=== PATIENT | female | born 1990 | race Caucasian/White ===

== ENCOUNTER → 2019-12-20 11:17 | Outpatient (BNVA) | payer OTHER, SELFPAY | PROVIDERS: Family Provider Nurse Practitioner Family; PCP Nurse Practitioner Family; Visit Provider Nurse Practitioner Women's Health | DX: N92.6 Irregular menstruation, unspecified (principal); Z12.4 Encounter for screening for malignant neoplasm of cervix | CPT/HCPCS: 83001; 84146; 84443; 84450; 84702; 88175 ==

== ENCOUNTER → 2020-03-20 16:49 | Outpatient (BNVA) | payer OTHER, SELFPAY | PROVIDERS: Family Provider Nurse Practitioner Family; PCP Nurse Practitioner Family; Visit Provider Nurse Practitioner Family | DX: M25.551 Pain in right hip (principal); M25.552 Pain in left hip; M54.5 Low back pain | CPT/HCPCS: 72100; 73522 ==

== ENCOUNTER → 2020-12-03 16:50 | Outpatient (BNVA) | payer OTHER, SELFPAY | PROVIDERS: Family Provider Nurse Practitioner Family; PCP Nurse Practitioner Family; Visit Provider Nurse Practitioner | DX: I10 Essential (primary) hypertension (principal); F41.8 Other specified anxiety disorders | CPT/HCPCS: 80053; 82607; 84443; 85025 ==

== ENCOUNTER → 2021-01-30 10:51 | Outpatient (BNVA) | payer BC, SELFPAY | PROVIDERS: Family Provider Nurse Practitioner Family; PCP Nurse Practitioner Family | DX: Z20.822 Contact with and (suspected) exposure to COVID-19 (principal); J32.0 Chronic maxillary sinusitis; H66.91 Otitis media, unspecified, right ear | CPT/HCPCS: 85007; 85027; 87635 ==

== ENCOUNTER → 2021-06-17 16:38 | Outpatient (BNVA) | payer BC, SELFPAY | PROVIDERS: Family Provider Nurse Practitioner Family; PCP Nurse Practitioner Family; Visit Provider Nurse Practitioner Family | DX: F41.8 Other specified anxiety disorders (principal); J02.9 Acute pharyngitis, unspecified; B37.0 Candidal stomatitis | CPT/HCPCS: 87071; 87880 ==

== ENCOUNTER → 2022-10-01 11:20 | Outpatient (BNVA) | payer OTHER, SELFPAY | PROVIDERS: Family Provider Nurse Practitioner Family; PCP Nurse Practitioner Family; Referring Provider Emergency Medicine; Visit Provider Student in an Organized Health Care Education/Training Program | DX: S66.821A Laceration of other specified muscles, fascia and tendons at wrist and hand level, right hand, initial encounter (principal); W26.0XXA Contact with knife, initial encounter | CPT/HCPCS: 73130 ==

== ENCOUNTER 2022-10-02 11:12 | Day surgery (SDC) | payer OTHER, SELFPAY ==
[2022-10-02 08:10] VITALS: BMI 28.7
[2022-10-02 11:39] LABS: OR HCG Qualitative Urine Negative (Negative)
[2022-10-02 11:40] VITALS: BP 154/112; PULSE 63; RESP 16; TEMP 36.3; O2SAT 99
--- NOTE | 2022-10-02 11:47 | P.ANESASSM_ITS ---
Pre-Anesthetic Assessment Height/Weight: Height 1.57 m Weight 71.214 kg Preop Diagnosis: Right small finger flexor tendon laceration Operation Date: 10/02/22 13:00 Proposed Procedures p Right small finger irrigation and debridement, wound exploration and flexor tendon repair. 55426,S66.821A; S61.401A,S69.90XA(Right) - Jeb [place], DO s Wound Exploration(Right) - Jeb [place], DO s Tendon Repair Finger Flexor Tendon Repair Finger(Right) - Jeb [place], DO Familial anesthetic complications: None Was Beta Marely taken within 24 hours: Yes Airway Submandibular: within normal limits Cervical ROM: within normal limits Mallampati: Class I CV/HEM Hypertension GI Gastroesophageal Reflux Disease Metabolic Hyperlipidemia Neuropsych Depression Anesthetic Plan ASA status: 2 Anesthesia: MAC Medications/Allergies Home Medications Medication Instructions Recorded Confirmed Last Taken Type tizanidine 4 mg tablet 4 mg PO DAILY PRN muscle 10/24/21 10/02/22 10/01/22 21:00 Rx spasticity #90 tabs cephalexin 500 mg capsule 500 mg PO Q8H 7 days #21 caps 09/30/22 10/02/22 Unknown Rx clonidine HCl 0.1 mg tablet 0.1 mg PO PRN PRN Blood Pressure 09/30/22 10/02/22 3 Days Ago History ~09/29/22 losartan 100 mg tablet 100 mg PO DAILY 09/30/22 10/02/22 10/01/22 08:00 History metoprolol tartrate 25 mg tablet 25 mg PO BID 09/30/22 10/02/22 10/02/22 History omeprazole 20 mg capsule,delayed 20 mg PO DAILY 09/30/22 10/02/22 10/02/22 History release rosuvastatin 20 mg tablet 20 mg PO DAILY 09/30/22 10/02/22 10/01/22 21:00 His tory venlafaxine 150 mg 150 mg PO DAILY 09/30/22 10/02/22 10/01/22 08:00 History capsule,extended release 24 hr zolpidem 10 mg tablet 5 mg PO ONCE 09/30/22 10/02/22 10/01/22 21:00 History Allergies Allergy/AdvReac Type Severity Reaction Status Date / Time No Known Allergies Allergy Verified 10/02/22 11:36 [facility] Anesthesia Medical History Anxiety with depression Essential (primary) hypertension Insomnia No pertinent past medical history neghx:dm,thyroid,dvt/pe Surgical History No pertinent past surgical history Family History Mother Diabetes Hypertension Family/Other Diabetes Paternal uncle x2 Father Hypertension Stroke Grandmother Hypertension Grandfather Hypertension Denies family history of Colon cancer Ovarian cancer Heart disease Hyperlipidemia Breast cancer Family history of thyroid problem Uterine cancer Social History Smoking and tobacco status: light tobacco smoker (every couple months) Second hand smoke exposure: No Smoking risk assessment/counseling performed?: No Alcohol intake: never Desire information about alcohol rehabilitation?: No Counseling given: No Substance/Drug Use: never Desire information about substance/drug rehabilitation?: No Counseling given: No Adopted: No Caregiver/support person: No Lives independently: Yes Household members: spouse and children Housing: House Marital status: Number of children: 1 service: No Current occupational status: employed Do you think of yourself as: Straight/Heterosexual Current gender identity: Female Additional social history: - Tobacco use: smokes 1cig every 6 months to a year Alcohol use: Denies Drug use: Denies Data Anesthesia Cardiac Studies: No Data to Display
[2022-10-02] MEDS: sodium chloride 0.9% 1,000 ML 30 ML IV (11:51)
[2022-10-02] MEDS: acetaminophen 1,000 MG/100 ML PIGGYBACK 400 MG IV (11:52)
[2022-10-02] MEDS: ketorolac 30 mg/mL INJ IVP (11:52)
[2022-10-02] MEDS: labetalol 5 mg/mL SDV 20mL IVP (12:12)
--- NOTE | 2022-10-02 12:28 | W.PM.OPSUD ---
Surgery/Procedure H&P Update DATE OF PROCEDURE: October 02, 2022 DATE H&P PERFORMED: 10/01/22 CHANGES TO PREVIOUS DOCUMENTATION: No changes from office visit from yesterday in the HPI. Patient is continued with her ER antibiotics splint on in place plan to proceed with surgery for right small finger irrigation debridement wound exploration and flexor tendon repair all questions answered. PREOP DIAGNOSIS: Right small finger flexor tendon laceration PRIMARY INDICATION FOR PROCEDURE: Right small finger flexor tendon laceration PLANNED PROCEDURE: Operation Date: 10/02/22 13:00 Proposed Procedures p Right small finger irrigation and debridement, wound exploration and flexor tendon repair. 74365,S66.821A; S61.401A,S69.90XA(Right) - Jeb [place], DO s Wound Exploration(Right) - Jeb Chavez, DO s Tendon Repair Finger Flexor Tendon Repair Finger(Right) - Jeb [place], DO
[2022-10-02] MEDS: ceFAZolin 2,000 MG in sodium chloride 0.9% (plus) 50 ML 100 MG IV (12:53)
--- NOTE | 2022-10-02 14:06 | SUR.OPER ---
1408 UPDATED PATIENTS MOTHER VIA WAITING AREA
[2022-10-02] MEDS: lidocaine 1% INJ 10 mL (per mL) XX ×2 (15:00)
[2022-10-02 15:20] VITALS: BP 133/78; PULSE 79; RESP 16; O2SAT 94
[2022-10-02 15:25] VITALS: BP 137/83; PULSE 77; RESP 16; O2SAT 95
[2022-10-02 15:30] VITALS: BP 145/85; PULSE 72; RESP 16; TEMP 36.2; O2SAT 94
[2022-10-02 15:35] VITALS: BP 147/76; PULSE 78; RESP 16; TEMP 36.1; O2SAT 95
[2022-10-02 15:50] VITALS: BP 155/87; PULSE 63; RESP 16; O2SAT 96
--- NOTE | 2022-10-02 16:30 | PM.PACU ---
PACU note Narrative: Patient seen and examined postoperatively patient is recovering well pain controlled. Patient has decreased sensation secondary to local anesthesia/digital block. Bulky dressing on in place limits examination fingertip is warm well-perfused brisk capillary for less than 2 seconds dorsal blocking splint on in place Exam: awake Disposition: discharged
--- NOTE | 2022-10-02 16:34 | ANE.PACU2 ---
Inpatient post-anesthesia follow up: Vital signs: Temperature 97 F Pulse Rate 63 Respiratory Rate 16 Blood Pressure 155/87 Pulse Oximetry 96 Oxygen Delivery Me thod Room Air Oxygen Flow Rate Fraction of Inspir ed Oxygen Hydration adequate: Yes Nausea and vomiting: No Pain level: 3
--- NOTE | 2022-10-02 16:35 | PM.OP ---
Operative Report Date of procedure: October 02, 2022 Pre-op diagnosis: Preop Diagnosis Right small finger flexor tendon laceration Post-op diagnosis: Right small finger zone 2 flexor tendon injury of FDS and FDP tendons Procedure done: Right small finger irrigation and debridement Right small finger flexor digitorum profundus tendon repair Right small finger radial slip flexor digitorum superficialis tendon repair Right small finger ulnar slip flexor digitorum superficialis tendon excision Implants: 4?0 Arthrex FiberWire and 6-0 Prolene Surgeon: Jeb Chavez DO Anesthesia: MAC (Local) Estimated blood loss: 10 cc 69 minutes IV fluids: 1100 mL Complications: None Findings: See operative report narrative Condition: stable Disposition: same day Brief History: Patient is a pleasant 32-year-old female presented to my office after sustaining a laceration to the right small finger directly over zone 2 just distal to the MP volar flexion crease. She was initially seen evaluated in the urgent care she was cleaned out a bedside incision was then closed there is concern for possible flexor tendon injury due to lack of flexion she was given antibiotics cleaned out and followed up with my office the following day. On my examination she has findings consistent with FDS and FDP tendons. At this point time given her young age as well as lack of flexion and decreased function recommend surgical intervention of the right small finger irrigation debridement and flexor tendon repair. Patient understands the risk benefits complication alternatives with surgery and elects proceed with surgical intervention all questions answered. Procedure: Patient was seen evaluate in the preoperative holding area. Consent was reviewed and signed with patient. Correct extremity was then marked. Patient was then seen and evaluated by the anesthesia apartment once cleared for surgery taken back to the operative suite plan was for a MAC and local anesthetic in order to allow patient to wake up and stressed the repair for examination of any quad region to affect. Patient was taken back to the operative suite and transferred onto the OR table all bony prominences well-padded patient appropriate secured to bed. Patient in supine position armboard applied to the right upper extremity. Nonsterile tourniquet applied to right upper arm. Patient underwent anesthesia previously department once properly anesthetized the right upper extremity is then prepped and draped in standard orthopedic fashion. Final timeout performed. Patient received appropriate preoperative antibiotics. Local anesthesia was then injected under sterile aseptic technique to perform an appropriate digital block for pain control and anesthesia throughout the procedure. I then utilized Esmarch tourniquet to exsanguinate the right upper extremity and the tourniquet was insufflated 250 mmHg. This point in time I then removed the simple stitches placed by the urgent care and evaluated patient small stab incision in zone 2 I utilized this incision incorporated and extended my incision both proximally and distal respecting my flexor creases and approaching these obliquely extending this in standard Bobbi fashion. I created full-thickness skin flaps and the skin flaps were then sutured and held back. I then came down directly over the flexor tendon sheath and it was evident that it just distal to the A2 patricia patient had lacerated the FDS and FDP tendons both the proximal and distal stumps were in close proximity. At this point in time I carried my dissection to both the radial and ulnar digital neurovascular bundles these were both intact with no injury. At this point in time I then performed a thorough irrigation and debridement of the entire wound of the small finger this extended to being roughly 4 cm x 1 cm x 0.5 cm. This was simply debrided of skin subcutaneous tissue. No bone or tendon was debrided. At this point time I then identified the distal stump and proximal stumps. Given this is just distal to the A2 and zone 2 injury my plan was to start with repair of FDP tendon and evaluate for either leaving for profundus finger versus possible a repair of FDS if possible in order to make sure there was no bulkiness in repair or triggering of the repair. At this point in time I completed my dissection and left the a 2 patricia intact as well as a 4 I did have to open up the A3 patricia in order to accommodate for the repair. At this point time I then pinned the distal stump up to appropriate tension abutting the distal stump of the FDP tendon. The FDP tendon was then was then repaired in a standard 6 core strand fashion with 4-0 FiberWire. This had appropriate tendon opposition for healing. I then utilized 6-0 Prolene suture as an epitendinous stitch. I then took the finger through range of motion there is no repair gap site noted. At this point in time I then evaluated the FDS tendons and in making a flexion of the finger the FDP tendon appeared to have appropriate space within the A2 patricia sheath with no triggering as a result I then elected to repair the radial side of the FDS. I then in standard fashion used a needle to hold the FDS tendon in appropriate position of the proximal and distal stump and in the standard fashion I performed a core strand repair of the FDS tendon given the location of this the FDS tendon was extremely small and I was only able to perform a 2 core strand repair of this as well as then an epitendinous stitch with the 4-0 FiberWire and 6-0 Prolene. I was satisfied with my repair and taken through finger range of motion and there was no triggering noted. At this point in time I elected in order to debulk the A2 patricia I subsequently performed an excision of the ulnar side of the FDS slip in order to debulk the tunnel. I shuttled PDS suture in order to isolate the appropriate FDS tendon that was the ulnar slip and pulled this through the proximal portion and then subsequently resected the ulnar slip of the FDS to its entirety to help allow for smooth flexor tendon range of motion through the A2 and A4 pulleys. At this point in time I was satisfied with my repair and wanted to evaluate with the patient. She subsequently was awakened from anesthesia and given she was under local anesthetic was able to make a fist and extend there is no tendon repair gapping and there was no appreciable triggering she was able to make a fist I did keep her protected from full extension there was no evidence of quad region effect. At this point time satisfied with my repair. Tourniquet was deflated. Wound bed was thoroughly irrigated. Hemostasis was satisfactory with bipolar electrocautery. I then subsequently closed the incision with interrupted 4-0 nylon suture. Dressings were then placed of Xeroform 4 x 4's Curlex soft roll and a dorsal blocking splint. Patient was then awakened from anesthesia and taken to PACU in stable condition. Disposition: Patient taken to PACU in stable condition recovering well. Will receive appropriate discharge instruction as well as pain medication postoperatively. In dorsal blocking splint until follow-up. We will get her established with flexor tendon repair protocol with our OT hand therapy department. Patient will follow-up in our office in 2 weeks. Patient understands that if she has any questions or concerns and contact the office. She should continue and complete her antibiotics from the urgent care postoperatively. All questions answered.
--- NOTE | 2022-10-06 23:55 | PM.OP2 ---
Brief Operative Note Date of procedure: 10/02/22 Pre-op diagnosis: Right small finger zone 2 flexor tendon injury Post-op diagnosis: same (FDS and FDP tendons lacerated) Procedure Done: Right small finger irrigation and debridement Right small finger flexor digitorum profundus tendon repair Right small finger radial slip flexor digitorum superficialis tendon repair Surgeon: Jeb Chavez Estimated blood loss (mL): 10 Complications: none Post-op Plan: Patient taken to PACU in stable condition recovering well dorsal blocking splint on in place. Patient be nonweightbearing to the right hand will receive appropriate discharge instructions as well as pain medication postoperatively. Patient to follow-up in the orthopedic office in 2 weeks. Patient will follow zone 2 flexor tendon repair protocol with OT hand therapy. Patient understands agrees with current plan. Questions answered. Condition: stable Disposition: same day Coding Level of Care Code Acute Code for Gabe Denise
== END 2022-10-02 16:15 | disposition home or self-care (01) ==
PROVIDERS: Anesthesiology; Visit Provider Student in an Organized Health Care Education/Training Program
PROC: (CPT 26356; principal; 2022-10-02 13:00)
PROC: (CPT 26356; 2022-10-02 13:00)
PROC: (CPT 26356; 2022-10-02 13:00)
DX: S66.126A Laceration of flexor muscle, fascia and tendon of right little finger at wrist and hand level, initial encounter (principal); I10 Essential (primary) hypertension; K21.9 Gastro-esophageal reflux disease without esophagitis; E78.5 Hyperlipidemia, unspecified; F17.210 Nicotine dependence, cigarettes, uncomplicated; W26.0XXA Contact with knife, initial encounter
CPT/HCPCS: 26356; 84703; J0131; J0690; J1100; J1885; J2250; J2405; J2704; J2795; J3010; J3490; J7030

== ENCOUNTER 2022-11-25 07:30 | Outpatient (RCR) | payer OTHER, SELFPAY | END 2022-12-17 23:59 | disposition home or self-care (01) | LOC: SOT 07:30 | PROVIDERS: Visit Provider Student in an Organized Health Care Education/Training Program | DX: Z47.89 Encounter for other orthopedic aftercare (principal) | CPT/HCPCS: 97022; 97035; 97110; 97140; 97166; 97530 ==

== ENCOUNTER 2022-12-18 06:00 | Outpatient (RCR) | payer OTHER, SELFPAY | END 2023-01-16 23:59 | disposition home or self-care (01) | LOC: SOT 06:00 | PROVIDERS: Visit Provider Student in an Organized Health Care Education/Training Program | DX: Z47.89 Encounter for other orthopedic aftercare (principal) | CPT/HCPCS: 97022; 97035; 97110; 97140 ==

== ENCOUNTER 2023-01-17 06:00 | Outpatient (RCR) | payer OTHER, SELFPAY | END 2023-02-16 23:59 | disposition home or self-care (01) | LOC: SOT 06:00 | PROVIDERS: Visit Provider Student in an Organized Health Care Education/Training Program | DX: Z47.89 Encounter for other orthopedic aftercare (principal) | CPT/HCPCS: 97022; 97035; 97110; 97140 ==

== ENCOUNTER 2023-02-17 06:00 | Outpatient (RCR) | payer OTHER, SELFPAY | END 2023-03-18 23:59 | disposition home or self-care (01) | LOC: SOT 06:00 | PROVIDERS: Visit Provider Student in an Organized Health Care Education/Training Program | DX: Z47.89 Encounter for other orthopedic aftercare (principal) | CPT/HCPCS: 97022; 97035; 97110; 97140 ==

== ENCOUNTER → 2024-02-07 13:22 | Outpatient (BNVA) | payer MEDICAID, SELFPAY | PROVIDERS: Visit Provider Clinical Nurse Specialist Adult Health | DX: I10 Essential (primary) hypertension (principal); E78.5 Hyperlipidemia, unspecified | CPT/HCPCS: 80053; 80061; 85025 ==

== ENCOUNTER 2024-05-20 15:23 | Emergency (ER) | payer MEDICAID, SELFPAY ==
[2024-05-20 16:02] VITALS: BP 102/67; PULSE 82; RESP 16; TEMP 36.8; O2SAT 99; BMI 29.2
[2024-05-20 16:52] LABS: HCG Qualitative Urine. Positive (Negative)
[2024-05-20 16:53] LABS: Bilirubin Urine Negative (Negative); Blood Urine Negative (Negative); Glucose Urine UA Negative (Normal); Ketones Urine Trace (Negative); Leukocyte Esterase Urine Trace (Negative); Nitrate Urine Negative (Negative); Protein Urine Trace (Negative); Specific Gravity, Urine 1.028 (1.005-1.030); Urine Appearance Cloudy (CLEAR); Urine Color Yellow (Yellow); pH Urine 5.5 (5-7)
[2024-05-20 16:56] LABS: Add Urine Microscopic? YES; Bacteria Urine 1+ /hpf; Hyaline Casts Urine 2.87 /lpf; Squamous Epithelial Cell Urine 21-50 /hpf (0-5)
--- NOTE | 2024-05-20 17:42 | USR_ITS ---
PROCEDURE INFORMATION: Exam: US First Trimester, Transabdominal and US , Transvaginal Exam date and time: 05/20/2024 6:50 PM Age: 33 years old Clinical indication: complicated by abdominal or pelvic pain; Lower; First trimester (<14 weeks 0 days); Gestational age or lmp: 8w3d; ; Additional info: Abd cramping LABS AND CLINICAL REPORTS: Last menstrual period start date: 03/11/2024 Gestational age (Established): 10 w 0 d Estimated due date (Established): 12/16/2024 TECHNIQUE: Imaging protocol: Real-time transabdominal obstetrical ultrasound of the maternal pelvis and a first trimester , less than 14 weeks 0 days, with image documentation. Transvaginal imaging was used for better evaluation of the fetus, adnexa, and/or cervix. COMPARISON: CT abdomen pelvis w con* [id number] 10/24/2017 10:22 PM FINDINGS: GESTATION: Gestation: There is a single intrauterine with crown-rump length measuring 19 mm. Yolk sac is rounded in morphology, measuring 3.5 mm. Embryo/ cardiac activity (BPM): 165 bpm Extra-embryonic membranes/Placenta: Small subchorionic hemorrhages measuring up to 1.6 cm. Amniotic/Chorionic fluid: Amniotic and extra-amniotic fluid are normal for gestational age. BIOMETRY: Gestational age (AUA): 8 weeks 3 days MATERNAL: Cervix: Cervical length measures 4.8 cm. Right ovary/adnexa: Right ovary measures 2.2 x 1.8 x 1.4 cm. Flow is visualized. No evidence of adnexal mass. Left ovary/adnexa: Left ovary measures 2.6 x 1.7 x 1.7 cm. Flow is visualized. No evidence of adnexal mass. Left-sided corpus luteum cyst noted. Intraperitoneal space: No significant pelvic free fluid. US/US OB <=14 wk fetus w transvag IMPRESSION: 1. Intrauterine with an estimated gestational age 8 weeks 3 days, corresponding to an estimated delivery December 27, 2024.
--- NOTE | 2024-05-20 17:46 | W.ED.ABDPA2 ---
HPI - Abdominal Pain General: Chief Complaint: Abdominal Pain Stated Complaint: abdominal pain Time Seen by Provider: 05/20/24 17:26 History of Present Illness: Isamar Bingham is a 33-year-old female that presents to the emergency department with complaints of abdominal cramping intermittently. Described as epigastric, but has diffuse cramping and diarrhea. Patient reports her son has been ill as well. Patient reports symptoms began 3 weeks ago This last she took a test that was positive. Last normal period was March 11, 2024. Patient also concerned about medications. She takes numerous medications that she is concerned about taking while . Patient is a G2, During her last she was preeclamptic. Patient denies fever, chills, vaginal bleeding, nausea or vomiting Associated Symptoms: Reports GI cramping and diarrhea Related Data Previous Rx's Medication Instructions Recorded metoprolol tartrate 25 mg tablet 25 mg PO BID #180 tabs 02/07/24 venlafaxine 150 mg 150 mg PO DAILY #90 caps 02/07/24 capsule,extended release 24 hr nifedipine 10 mg capsule 10 mg PO BID #30 caps 05/20/24 Allergies Allergy/AdvReac Type Severity Reaction Status Date / Time No Known Allergies Allergy Verified 02/07/24 12:54 Review of Systems General: Reports: 10 or more systems reviewed and unremarkable except in HPI and below GI: Reports: abdominal pain, diarrhea and GI cramping [facility] PFSH: Medical History (Updated 05/20/24 @ 19:40 by DALIA Lowery) Muscle cramps Hyperlipidemia GERD (gastroesophageal reflux disease) Flexor tendon laceration of right hand with open wound Insomnia No pertinent past medical history neghx:dm,thyroid,dvt/pe Essential (primary) hypertension Anxiety with depression Surgical History Hx of hand surgery tendon repair of right hand Family History Mother Diabetes Hypertension Family/Other Diabetes Paternal uncle x2 Father Hypertension Stroke Grandmother Hypertension Grandfather Hypertension Denies family history of Colon cancer Ovarian cancer Heart disease Hyperlipidemia Breast cancer Family history of thyroid problem Uterine cancer Social History Smoking and tobacco/nicotine status: former use of tobacco/nicotine Quit status (tobacco/nicotine): has quit using Former quit date comment: 2-3 years ago Second hand smoke exposure: No Alcohol intake: never Substance/Drug Use: never Adopted: No Caregiver/support person: No Lives independently: Yes Household members: children Housing: House Marital status: Number of children: 1 Highest education level completed: Some College, No Degree service: No Current occupational status: previously employed Do you think of yourself as: Straight/Heterosexual Current gender identity: Female Physical Exam Const: COMMON NORMALS: no acute distress, patient oriented x3 and alert GENERAL APPEARANCE: cooperative ORIENTATION/CONSCIOUSNESS: Yes awake, Yes oriented to person, Yes oriented to place and Yes oriented to time Resp: COMMON NORMALS: normal respiratory effort, No retractions and No use of accessory muscles EFFORT & INSPECTION: Yes able to speak in complete sentences and Yes symmetric chest movement GI: COMMON NORMALS: Normal to inspection, nondistended, normoactive bowel sounds present, Soft to palpation and non-tender INSPECTION: Yes normal to inspection PALPATION: Yes Soft to palpation RECTAL EXAM: deferred Neuro: COMMON NORMALS: patient oriented x3 SENSORIUM/ORIENTATION: Yes alert, Yes oriented to person, Yes oriented to place and Yes oriented to time CRANIAL NERVES: Yes CN normal except as noted Psych: COMMON NORMALS: mental status grossly normal, Normal thought process present, cooperative, activity/motor behavior normal, denies homicidal ideation and denies suicidal ideation THOUGHT PROCESS: Normal thought process present Course Vital Signs: Vital signs: Vital Signs Temperature 98.3 F 05/20/24 16:02 Pulse Rate 92 05/20/24 19:16 Respiratory Rate 16 05/20/24 16:02 Blood Pressure 112/75 05/20/24 19:16 Pulse Oximetry 100 05/20/24 19:16 Oxygen Delivery Me thod Room Air 05/20/24 19:16 MDM - Abdominal Pain Medical Decision Making Patient presents to the emergency department with complaints of possible , 3 weeks of abdominal cramping with diarrhea, and numerous medication she is concerned about continuing if she is . She had a positive hCG qualitative here. A quantitative study was ordered. I also obtained an Rh, CBC, CMP, lipase, urinalysis. We also obtained a ultrasound OB. Due to no family members I did also obtain a COVID/influenza/RSV test. CBC reveals no leukocytosis or anemias. Chemistry panel reveals mild hyponatremia but no significant dehydration or electrolyte abnormality. Her kidney function is within normal limits. Lipase is within normal limits. Her urinalysis reveals no urinary tract infection. We did obtain a quantitative hCG which is 109,000. She is flu a positive An ultrasound was completed. She is 8 weeks 3 days . She has 2 subchorionic hemorrhages. There is no fluid in the cul-de-sac. In reviewing her medication list, patient's entire medication list is category C, D, and X. I reviewed her medications and her case with Dr. Ahn and Dr. Acosta. They agree with plan for making medication adjustments and having her follow-up outpatient with high school history teacher and her primary care. I discontinued her medications with the exceptions of metoprolol and venlafaxine. I am adding nicardipine 10 mg I have consulted the rifle case repairer to assist with high risk OB referral. Patient was updated and all questions were answered Lab Data 05/20/24 18:26 05/20/24 18:26 Labs/Radiology: Laboratory Results WBC 5.49 10^3/uL (3.29-11.43) 05/20/24 18:26 RBC 4.37 10^6/uL (3.85-5.65) 05/20/24 18:26 Hgb 13.50 g/dL (11.27-16.99) 05/20/24 18:26 Hct 41.4 % (36-47) 05/20/24 18:26 MCV 94.7 fl (85-98) 05/20/24 18:26 MCH 30.9 pg (27-33) 05/20/24 18:26 MCHC 32.6 g/dL (30-55) 05/20/24 18:26 RDW 13.0 % (12.1-15.1) 05/20/24 18:26 Plt Count 214 10^3/cmm (157-399) 05/20/24 18:26 MPV 10.0 fL (7.4-10.4) 05/20/24 18:26 Neut % (Auto) 74.5 % 05/20/24 18:26 Lymph % (Auto) 12.8 % 05/20/24 18:26 Payne % (Auto) 11.7 % 05/20/24 18:26 Eos % (Auto) 0.2 % 05/20/24 18:26 Baso % (Auto) 0.4 % 05/20/24 18:26 Neut # (Auto) 4.10 10^3/uL (1.8-7.7) 05/20/24 18:26 Lymph # (Auto) 0.7 10^3/uL (0.8-4.8) L 05/20/24 18:26 Payne # (Auto) 0.6 10^3/uL (0.2-0.9) 05/20/24 18:26 Eos # (Auto) 0.0 10^3/uL (0.0-0.8) 05/20/24 18:26 Baso # (Auto) 0.0 10^3/uL (0.0-0.1) 05/20/24 18:26 Nucleated RBC % (auto) 0 % 05/20/24 18: Nucleated RBCs # 0.0 /100WBC 05/20/24 18:26 Sodium 131 mmol/L (136-145) L 05/20/24 18:26 Potassium 4.0 mmol/L (3.5-5.1) 05/20/24 18: Chloride 97 mmol/L (98-107) L 05/20/24 18:26 Carbon Dioxide 20 mmol/L (22-29) L 05/20/24 18:26 Anion Gap 18.0 (5-19) 05/20/24 18:26 BUN 10 mg/dL (6-20) 05/20/24 18:26 Creatinine 0.5 mg/dL (0.5-0.9) 05/20/24 18:26 GFR Calculation 143.0 mL/min (90-130) H 05/20/24 18:26 Glucose 77 mg/dL (65-115) 05/20/24 18: Calculated Osmolality 270 mOsm/kg (285-295) L 05/20/24 18:26 Calcium 9.9 mg/dL (8.5-10.5) 05/20/24 18:26 Total Bilirubin 0.2 mg/dL (0.15-1.2) 05/20/24 18: AST 17 U/L (0-32) 05/20/24 18:26 ALT 15 U/L (0-33) 05/20/24 18:26 Alkaline Phosphatase 54 U/L (35-105) 05/20/24 18:26 Total Protein 7.4 g/dL (6.6-8.7) 05/20/24 18:26 Albumin 4.3 g/dL (3.5-5.2) 05/20/24 18:26 Globulin 3.1 g/dL (1.3-4.6) 05/20/24 18:26 Lipase 26 U/L (13-60) 05/20/24 18:26 HCG, Qual Positive (Negative) H 05/20/24 16:47 Ser , Semi-Qnt 466914.00 mIU/mL 05/20/24 18:26 Urine Color Yellow (Yellow) 05/20/24 16:47 Urine Appearance Cloudy (CLEAR) A 05/20/24 16:47 Urine pH 5.5 (5-7) 05/20/24 16:47 Ur Specific [place] 1.028 (1.005-1.030) 05/20/24 16:47 Urine Protein Trace (Negative) A 05/20/24 16:47 Urine Glucose (UA) Negative (Normal) 05/20/24 16:47 Urine Ketones Trace (Negative) 05/20/24 16:47 Urine Blood Negative (Negative) 05/20/24 16:47 Urine Nitrate Negative (Negative) 05/20/24 16:47 Urine Bilirubin Negative (Negative) 05/20/24 16:47 Urine Urobilinogen 1.0 mg/dL (Negative) 05/20/24 16:47 Ur Leukocyte Esterase Trace (Negative) A 05/20/24 16:47 Urine RBC 6-10 /hpf (0-2) 05/20/24 16:47 Urine WBC 6-10 /hpf (0-5) 05/20/24 16:47 Ur Squamous Epith Cells 21-50 /hpf (0-5) H 05/20/24 16:47 Amorphous Sediment Not Reportable 05/20/24 16:47 Urine Bacteria 1+ /hpf (NONE) H 05/20/24 16:47 Hyaline Casts 2.87 /lpf 05/20/24 16:47 Coronavirus (PCR) Negative (Negative) 05/20/24 17:52 Influenza A (PCR) Positive (Negative) 05/20/24 17:52 Influenza Type B (PCR) Negative (Negative) 05/20/24 17:52 RSV (PCR) Negative (Negative) 05/20/24 17:52 Rho(D) Type Rh positive 05/20/24 18:26 XR interpretation done by ED provider, pending radiology final review Discharge Plan Discharge Patient Disposition: Home Clinical Impression: , Essential (primary) hypertension, Subchorionic hemorrhage, Influenza A Condition: Stable Prescriptions: New nifedipine 10 mg capsule 10 mg PO BID Qty: 30 0RF Discontinued losartan 100 mg tablet No Action metoprolol tartrate 25 mg tablet 25 mg PO BID Qty: 180 3RF venlafaxine 150 mg capsule,extended release 24hr 150 mg PO DAILY Qty: 90 3RF Discharge Orders: Discharge ED (Routine); Ordered 05/20/24 Ordered By: Godwin Grubbs Discharge Diet: Advance as tolerated Discharge Activity: Resume usual activity Patient Instructions: Influenza (ED), Abdominal Pain in (ED), Subchorionic Hemorrhage (ED), Pain Management Activity Restrictions/Additional Instructions: I have consulted the rifle case repairer to assist in high school history teacher referral. I have also reconciled her medications and discontinued everything except for venlafaxine, metoprolol. Have added nifedipine. I given you enough nifedipine for 2 weeks. I want you to call your primary care doctor Wednesday to make an appointment. You need to follow-up this week with primary care. Please return to the emergency department for new concerning or worsening symptoms Do not return to work until you are fever free without ibuprofen or Tylenol for 24 hours. You should rest for the next couple days due to the subchorionic hemorrhage. A work note has been provided Stand Alone Forms: Work/School Release Coding Level of Care Code ED Cash Controller for Gabe Denise
[2024-05-20 18:37] LABS: Covid PCR NEGATIVE (Negative); Influenza A POSITIVE (Negative); Influenza B NEGATIVE (Negative); Respiratory Syncytial Virus Ce NEGATIVE (Negative)
[2024-05-20 18:41] LABS: Basophils % 0.4 %; Eosinophils % 0.2 %; Hematocrit 41.4 % (36-47); Lymphocytes # 0.7 10^3/uL (0.8-4.8); Lymphocytes % 12.8 %; Mean Corpuscular HGB Conc 32.6 g/dL (30-55); Mean Corpuscular Hemoglobin 30.9 pg (27-33); Mean Corpuscular Volume 94.7 fl (85-98); Monocytes # 0.6 10^3/uL (0.2-0.9); Monocytes % 11.7 %; Neutrophils % 74.5 %; Nucleated Red Blood Cells % 0 %; Platelet Count 214 10^3/cmm (157-399); Red Blood Count 4.37 10^6/uL (3.85-5.65); White Blood Count 5.49 10^3/uL (3.29-11.43)
[2024-05-20 19:05] LABS: Alanine Aminotransferase 15 U/L (0-33); Albumin Level 4.3 g/dL (3.5-5.2); Alkaline Phosphatase 54 U/L (35-105); Blood Urea Nitrogen 10 mg/dL (6-20); Calcium 9.9 mg/dL (8.5-10.5); Carbon Dioxide 20 mmol/L (22-29); Chloride 97 mmol/L (98-107); Creatinine Clr Calc Pharmacy 150.6795; Globulin 3.1 g/dL (1.3-4.6); Glucose 77 mg/dL (65-115); Lipase 26 U/L (13-60); Osmolality Calculated 270 mOsm/kg (285-295); Sodium 131 mmol/L (136-145); Total Bilirubin 0.2 mg/dL (0.15-1.2); Total Protein 7.4 g/dL (6.6-8.7)
[2024-05-20 19:06] LABS: Aspartate Amino Transferase 17 U/L (0-32)
[2024-05-20 19:16] VITALS: BP 112/75; PULSE 92; O2SAT 100
[2024-05-20 19:53] VITALS: BP 112/75; PULSE 92; O2SAT 100
--- NOTE | 2024-05-24 08:18 | DCPLANNER ---
Message sent to [facility] -
== END 2024-05-20 19:54 | disposition home or self-care (01) ==
PROVIDERS: Emergency Provider Nurse Practitioner
DX: O20.8 Other hemorrhage in early pregnancy (principal); Z3A.01 Less than 8 weeks gestation of pregnancy; Z11.52 Encounter for screening for COVID-19; I10 Essential (primary) hypertension; J10.1 Influenza due to other identified influenza virus with other respiratory manifestations; Z87.891 Personal history of nicotine dependence; E78.5 Hyperlipidemia, unspecified
CPT/HCPCS: 36415; 76801; 76817; 80053; 81001; 81025; 83690; 84702; 85025; 87637; 99284

== ENCOUNTER → 2024-09-20 11:29 | Outpatient (BNVA) | payer MEDICAID, SELFPAY | PROVIDERS: Visit Provider Nurse Practitioner Women's Health | DX: Z12.4 Encounter for screening for malignant neoplasm of cervix (principal); R19.7 Diarrhea, unspecified | CPT/HCPCS: 76830; 87045; 87427; 87449; 87624 ==

== ENCOUNTER → 2024-10-12 14:09 | Outpatient (BNVA) | payer MEDICAID, SELFPAY | PROVIDERS: Visit Provider Obstetrics & Gynecology | DX: Z87.42 Personal history of other diseases of the female genital tract (principal) | CPT/HCPCS: 81025; 88305 ==

== ENCOUNTER → 2024-12-28 10:02 | Outpatient (BNVA) | payer MEDICAID, SELFPAY | PROVIDERS: PCP Nurse Practitioner; Visit Provider Nurse Practitioner | DX: R00.0 Tachycardia, unspecified (principal); E78.49 Other hyperlipidemia; E55.9 Vitamin D deficiency, unspecified | CPT/HCPCS: 80053; 80061; 82306; 84443 ==